=== PATIENT | female | born 1990 | race American Indian/Alaskan Native ===

== ENCOUNTER 2018-04-23 03:08 | Inpatient (IN) | payer MEDICAID ==
[2018-04-23] MEDS ORDERED: BENADRYL PO PRN (03:15)
[2018-04-23] MEDS ORDERED: MILK OF MAGNESIA PO PRN (03:15)
[2018-04-23] MEDS ORDERED: DERMOPLAST TP PRN (03:15)
[2018-04-23] MEDS ORDERED: ZOFRAN IV PRN (03:15)
[2018-04-23] MEDS ORDERED: TUCKS PAD TP PRN (03:15)
[2018-04-23] MEDS ORDERED: LANSINOH TP PRN (03:15)
[2018-04-23] MEDS ORDERED: TYLENOL PO PRN (03:15)
[2018-04-23] MEDS ORDERED: PHENERGAN PO PRN (03:15)
[2018-04-23] MEDS ORDERED: DULCOLAX PR PRN (03:15)
--- NOTE | 2018-04-23 03:22 | History and Physical Report ---
History of Present Illness Date of examination: 04/23/18 Date of admission: 04/23/18 03:08 Chief complaint: Vaginal del @ home History of present illness: Patient arrived delivered by EMS at home - receives care with MOHINI Delvalle and couldn't make it to [facility] [place]. Pt reports EDC 04/30/18 A2 2011 and 2013 without complication Labor began @ 2100 last night. SROM 0200 - clear fluid Pt denies medical hx Pt denies surgical hx Pt denies ETOH/Drugs/Smoking She reports hx CT with successful treatment Past History Past Medical History: no pertinent history Past Surgical History: no surgical history [employer] AGENT History: chlamydia - Obstetrical History Expected Date of Delivery: 04/30/18 Actual Gestation: 39 Week(s) 0 Day(s) : 5 Para: 3 Hx # Term Pregnancies: 3 Number of Pregnancies: 0 Spontaneous Abortions: 2 Induced : 0 Number of Living Children: 3 Medications and Allergies Active Meds: Active Medications Acetaminophen (Tylenol) 650 mg PO Q4H PRN PRN Reason: Pain MILD(1-3)/Fever >100.5/AUGUSTIN Benzocaine/Menthol (Dermoplast) 1 spray TP PRN PRN PRN Reason: Pain, Mild (1-3) Bisacodyl (Dulcolax) 10 mg IN BID PRN PRN Reason: Constipation Diphenhydramine HCl (Benadryl) 25 mg PO Q6H PRN PRN Reason: Itching Diphtheria/Tetanus/Acell Pertussis (Boostrix) 0.5 ml IM .ONCE ONE Stop: 04/24/18 03:16 Docusate Sodium (Colace) 100 mg PO BID CARMELO Ibuprofen (Motrin) 600 mg PO Q6H CARMELO Magnesium Hydroxide (Milk Of Magnesia) 30 ml PO HS PRN PRN Reason: Constipation Multi-Ingredient Ointment (Lansinoh) 1 applic TP PRN PRN PRN Reason: Sore Nipples Multivitamins/Iron/Calcium ( Vitamin) 1 each PO QDAY CARMELO Ondansetron HCl (Zofran) 4 mg IV Q8H PRN PRN Reason: Nausea And Vomiting Promethazine HCl (Phenergan) 25 mg PO Q6H PRN PRN Reason: Nausea And Vomiting Sodium Chloride (Sodium Chloride Flush Syringe 10 Ml) 10 ml IV PRN NR Witch Tina/Glycerin (Tucks Pad) 1 each TP PRN PRN PRN Reason: Hemorrhoid/cleansing/soothing Review of Systems All systems: negative - Physical Exam Breasts: Positive: normal Cardiovascular: Regular rate Lungs: Positive: Clear to auscultation, Normal air movement Abdomen: Positive: normal appearance, soft Genitourinary (Female): Positive: normal external genitalia, normal perenium Vulva: both: normal Vagina: Positive: normal moisture Uterus: Positive: normal size, normal contour Anus/Rectum: Positive: normal perianal skin Extremities: Positive: normal Results All other labs normal. Assessment and Plan 27y/o del @ home @ 0215 by EMS. Pt denies complication with . admission orders in EMR. Will attempt to get records from [facility] [place]. - Patient Problems (1) (spontaneous vaginal delivery) Current Visit: Yes Status: Acute
--- NOTE | 2018-04-23 03:28 | Procedure Note ---
OB Delivery Note - Delivery Date of Delivery: 04/23/18 (Home delivery) Software Reverse Engineer: VANCE OSEGUERA Estimated blood loss: 200cc - Vaginal Delivery presentation: vertex Delivery position: OA (per SALESPERSON FURS with EMS) Intrapartum events: other(please specify) (unintended home delivery) Delivery induction: none Delivery monitor: none Route of delivery: Delivery placenta: spontaneous Delivery cord: nuchal cord (tight NC x2 per SALESPERSON FURS with EMS) Episiotomy: none Delivery laceration: none Anesthesia: none Delivery comments: @ home with EMS (SALESPERSON FURS in attendance) @ 0215. del DARRIUS, cord around neck x 2. pt arrived with placenta undelivered. Cord blood collected. Del @ 0308 - appears to be intact and complete. No lacerations to repair. fundus firm, lochia scant. Apgars assigned by SALESPERSON FURS 10/21. Mother and infant LDR stable. - Infant A at 1 minute: 7 at 5 minutes: 9 Gender: Female (6#12oz)
[2018-04-23] MEDS ORDERED: SODIUM CHLORIDE FLUSH SYRINGE 10 ML IV PRN (04:00)
[2018-04-23 05:57] LABS: Amphetamine Screen,Urine PRESUMPTIVE NEGATIVE; Benzodiazepines Screen,Urine PRESUMPTIVE NEGATIVE; Cannabinoid Screen,Urine PRESUMPTIVE NEGATIVE; Cocaine Screen,Urine PRESUMPTIVE NEGATIVE; Methadone Screen,Urine PRESUMPTIVE NEGATIVE; Opiate Screen,Urine PRESUMPTIVE NEGATIVE
[2018-04-23 05:59] LABS: Hematocrit 33.4 % (30.3-42.9); Mean Corpuscular HGB Conc 33 % (30-34); Mean Corpuscular Volume 90 fl (79-97); Platelet Count 291 K/mm3 (140-440); Red Blood Count 3.73 M/mm3 (3.65-5.03); Red Cell Distribution Width 15.4 % (13.2-15.2)
[2018-04-23] MEDS: PRENATAL VITAMIN PO SCH (10:52)
[2018-04-23] MEDS: COLACE PO SCH ×2 (10:52→22:06)
[2018-04-23 16:01] LABS: Hematocrit 29.4 % (30.3-42.9); Hemoglobin 9.8 gm/dl (10.1-14.3)
[2018-04-23] MEDS: IBUPROFEN PO SCH ×2 (18:24→18:25)
[2018-04-24] MEDS: IBUPROFEN PO SCH (00:08)
[2018-04-24] MEDS ORDERED: BOOSTRIX IM ONE (06:00)
--- NOTE | 2018-04-24 08:26 | Discharge Summary ---
Providers - Providers Date of Admission: 04/23/18 03:08 Date of discharge: 04/24/18 (patient desires discharge today) Attending physician: JAYLA PASCAL Primary care physician: SATURATOR Hospitalization Reason for admission: unplanned home delivery Condition: Good Pertinent studies: post delivery H&H 9.8/29.4, asymptomatic Procedures: unplanned home delivery, placenta delivered at [facility] Hospital course: uncomplicated delivery and course Disposition: DC- TO HOME OR SELFCARE - Discharge Diagnoses (1) Anemia due to acute blood loss Status: Acute (2) (spontaneous vaginal delivery) Status: Acute Core Measure Documentation - Palliative Care Palliative Care/ Comfort Measures: Not Applicable - Core Measures Any of the following diagnoses?: none Exam - Constitutional Vitals: Temp Pulse Resp BP Pulse Ox 98.5 F 77 20 104/50 96 04/24/18 00:39 04/24/18 00:39 04/24/18 00:39 04/24/18 00:39 04/24/18 00:39 General appearance: Present: no acute distress, well-nourished - EENT Eyes: Present: PERRL ENT: hearing intact, clear oral mucosa - Neck Neck: Present: supple, normal ROM - Respiratory Respiratory effort: normal Respiratory: bilateral: CTA - Cardiovascular Heart Sounds: Present: S1 & S2. Absent: rub, click - Extremities Extremities: pulses symmetrical, No edema Peripheral Pulses: within normal limits - Abdominal General gastrointestinal: Present: soft, non-tender, non-distended, normal bowel sounds Female genitourinary: Present: normal - Integumentary Integumentary: Present: clear, warm, dry - Musculoskeletal Musculoskeletal: gait normal, strength equal bilaterally - Psychiatric Psychiatric: appropriate mood/affect, intact judgment & insight - Neurologic Neurologic: CNII-XII intact, moves all extremities - Additional findings Additional findings: fundus firm, lochia scant. breast and bottle feeding-going well. Plan Activity: no restrictions Diet: regular Follow up with: PRIMARY CARE, [Primary Care Provider] - 7 Days SCOOTER LARIOS CNM [Advanced Practice Nurse] - 6 Weeks (Congratulations! Please call [phone] to schedule appointment in 4-6 weeks. Please call with any questions or concerns. )
[2018-04-24] MEDS: PRENATAL VITAMIN PO SCH (09:49)
[2018-04-24] MEDS: COLACE PO SCH (09:49)
[2018-04-24 18:05] VITALS: BP 105/69
== END 2018-04-24 19:30 | disposition home or self-care (01) | DRG 775 ==
LOC: LD 03:08 → OB 06:20
PROVIDERS: ADMIT Obstetrics & Gynecology; ATTEND Obstetrics & Gynecology
PROC: 10E0XZZ Delivery of Products of Conception, External Approach (ICD-10-PCS; principal; 2018-04-23)
DX: O69.81X0 Labor and delivery complicated by cord around neck, without compression, not applicable or unspecified (principal); O99.02 Anemia complicating childbirth; D62 Acute posthemorrhagic anemia; Z3A.39 39 weeks gestation of pregnancy; Z37.0 Single live birth
CPT/HCPCS: 36415; 80307; 85014; 85018; 85027; 86850; 86900; 86901; G0378